=== PATIENT | female | born 1960 | race Caucasian/White ===

== ENCOUNTER → 2017-12-14 15:17 | Outpatient (CLI) | payer OTHER, SELFPAY ==
[2017-12-14 18:18] LABS: ALB/GLOB Ratio 1.1 RATIO (0.9-2.4); AST(SGOT) 18 U/L (15-37); Alanine Aminotransfer ALT/SGPT 34 U/L (13-56); Alkaline Phosphatase 53 U/L (45-117); Anion Gap 10 (5-15); BUN 12 mg/dL (7-18); BUN/Creat Ratio 13.6 RATIO (10-20); Calcium,Total 9.4 mg/dL (8.5-10.1); Chloride 103 mmol/L (98-107); Creatinine, Serum 0.88 mg/dL (0.55-1.02); EST Glomerular Filtration Rate 69 mL/min (>60); Est Glom Filt Rate - Afr Amer 84 mL/min (>60); Globulin 3.6 g/dL (2.2-4.2); Glucose 86 mg/dL (74-106); Potassium 3.8 mmol/L (3.5-5.1); Protein, Total 7.6 g/dL (6.4-8.2); Sodium Level 139 mmol/L (136-145); T4 Free Direct 1.56 ng/dL (0.76-1.46); Thyroid Stim Hormone (TSH) 0.41 uIU/mL (0.358-3.74)
== END ==
PROVIDERS: Family Provider Family Medicine; PCP Family Medicine; Visit Provider Family Medicine
DX: E03.8 Other specified hypothyroidism (principal); I10 Essential (primary) hypertension
CPT/HCPCS: 36415; 80053; 84439; 84443

== ENCOUNTER → 2018-04-28 08:21 | Outpatient (CLI) | payer OTHER, SELFPAY ==
--- NOTE | 2018-04-28 08:27 | BD_ITS ---
STUDY: DUAL ENERGY X-RAY ABSORPTIOMETRY / DXA REASON FOR EXAM: Female, 57 years old. The patient is postmenopausal. Loss of height. TECHNIQUE: Bone Mineral Density (BMD) measurements of lumbar spine and bilateral hips were obtained. COMPARISON: Comparison is made with prior study dated July 25, 2015. FINDINGS: Lumbar Spine (L1-L4): g/cm2 (0.854) / T-score (-2.7) / Z-score (-1.5) Findings are suggestive of osteoporosis with a high fracture risk. Left Femur Total: g/cm2 (0.845) / T-score (-1.3) / Z-score (-0.4) Left Femoral Neck: g/cm2 (0.762) / T-score (-2.0) / Z-score (-0.8) Right Femur Total: g/cm2 (0.845) / T-score (-1.3) / Z-score (-0.4) Right Femoral Neck: g/cm2 (0.724) / T-score (-2.3) / Z-score (-1.0) The T-Scores on the most recent prior examination were: Left Femur Total: which represents a worsening of 2.4%. Right Femur Total: which represents an improvement of 1.4%. BD/Dexa Bone Density Study IMPRESSION: The patient is considered osteoporotic as outlined below according to World Taran Organization (WHO) criteria with a high fracture risk. There has been improvement of bone density since the previous examination. Reference Information: The T-score is the number of standard deviations above or below the standard which is normal for young adults at their peak bone mineral density. The World Health Organization (WHO) interprets the T-scores as follows: Above -1 Normal bone density Between -1 and -2.5 Osteopenia Equal to / or below -2.5 Osteoporosis As a practical clinical guideline, osteopenia may be graded as follows: Mild -1 through -1.5 Moderate -1.6 through -2.0 Severe -2.1 through -2.4 The Z-score is the number of standard deviations above or below age-matched controls. A Z-score of less than -1.5 would be considered abnormal. References: 1. NIH Osteoporosis and Related Bone Diseases http://www.osteo.org 2. International Society for Clinical Densitometry http://www.iscd.org 3. National Osteoporosis Foundation http://www.nof.org Electronically Signed: Janusz Lennon MD at 15:16 EDT Tel [phone], Service support ,
== END ==
PROVIDERS: Family Provider Family Medicine; PCP Family Medicine; Visit Provider Family Medicine
DX: Z00.00 Encounter for general adult medical examination without abnormal findings (principal)
CPT/HCPCS: 77080

== ENCOUNTER → 2018-06-16 08:23 | Outpatient (CLI) | payer OTHER, SELFPAY ==
[2018-06-16 10:49] LABS: Vitamin D,25 Hydroxy 45.3 ng/mL (29.95-100.01)
[2018-06-16 10:55] LABS: AST(SGOT) 15 U/L (15-37); Alanine Aminotransfer ALT/SGPT 24 U/L (13-56); Albumin, Serum 3.6 g/dL (3.2-5.0); Alkaline Phosphatase 55 U/L (45-117); Anion Gap 10 (5-15); BUN 18 mg/dL (7-18); BUN/Creat Ratio 19.3 RATIO (10-20); Calcium,Total 8.8 mg/dL (8.5-10.1); Chloride 105 mmol/L (98-107); Cholesterol 261 mg/dL (200); Creatinine, Serum 0.93 mg/dL (0.55-1.02); EST Glomerular Filtration Rate 65 mL/min (>60); Est Glom Filt Rate - Afr Amer 79 mL/min (>60); Globulin 3.6 g/dL (2.2-4.2); Glucose 101 mg/dL (74-106); High Density Lipoprotein 49 mg/dL; Phosphorus 3.3 mg/dL (2.5-4.9); Potassium 3.8 mmol/L (3.5-5.1); Protein, Total 7.2 g/dL (6.4-8.2); Sodium Level 139 mmol/L (136-145); T4 Free Direct 1.43 ng/dL (0.76-1.46); Thyroid Stim Hormone (TSH) 0.53 uIU/mL (0.358-3.74); Triglycerides 85 mg/dL; Very Low Density Lipoprotein 17 mg/dL (5-40)
[2018-06-16 10:57] LABS: PTHIN 48.9 pg/mL (18.4-80.1)
--- OUTSIDE RECORDS SUMMARY | 2018-08-02 01:23 | XMS RPT_ITS ---
:1960 Author Organization OHIP Care Team Providers Name Role Phone RAMO VILLA Referring Unavailable Nehemias Mosher Attending Unavailable Nehemias Mosher Primary Care Unavailable Nehemias Mosher Attending Unavailable Nehemias Mosher Primary Care Unavailable Nehemias Mosher Attending Unavailable Nehemias Mosher Primary Care Unavailable PROBLEMS PROBLEMS DATE TYPE CONDITION / CODE ATTENDING STATUS SOURCE Unknown 272.0 - Pure Ransanam, Active [place] 8 hypercholesterolemia / [facility] 272.0(ICD-9) Hospital Repository Unknown E78.00 - Pure Ranney, Active [place] 8 hypercholesterolemia, [facility] unspecified / Hospital E78.00(ICD-10) Repository Unknown 244.8 - Other specified Ranney, Active [place] 8 acquired hypothyroidism / [facility] 244.8(ICD-9) Hospital Repository Unknown E03.8 - Other specified Ranney, Active [place] 8 hypothyroidism / [facility] E03.8(ICD-10) Hospital Repository Unknown 268.9 - Unspecified Ranney, Active [place] 8 vitamin D deficiency / [facility] 268.9(ICD-9) Hospital Repository Unknown E55.9 - Vitamin D Ranney, Active [place] 8 deficiency, unspecified / [facility] E55.9(ICD-10) Hospital Repository Unknown 733.01 - Senile Ranney, Active [place] 8 osteoporosis / [facility] 733.01(ICD-9) Hospital Repository Unknown M81.0 - Age-related Ranney, Active [place] 8 osteoporosis without [facility] current pathological Hospital fracture / M81.0(ICD-10) Repository Active Encounter for screening NA Active [place] 8 mammogram for malignant Clinic Main neoplasm of breast / [place] Z12.31(ICD-10) Repository PROCEDURES PROCEDURES No Procedure Records FoundRESULTS RESULTS VITAMIN D,25 HYDROXY Collected: 06/16/2018 Status: F Source: [place] 8:24 AM [facility] REPOSITORY TYPE CODE TESTS RESULT OUT OF RANGE REFERENCE UNITS LAB L506.1000 29.95-100.01 ng/mL Normal Vitamin D 45.3 25-OH Result Comment: Vitamin D 25(OH) Status Range Deficiency <20 ng/mL (50nmol/L) Insuffciency 20 - 30 ng/mL (50 - 75 nmol/L) Sufficiency 30 - 100 ng/mL (75 - 250 nmol/L) Toxicity >100 ng/mL (>250 nmol/L) Performed By: #### L506.1000, L500.4050, L500.4100, L501.9520, L506.0400 #### [facility] [address] [place], [address] COMPREHENSIVE METABOLIC Collected: 06/16/2018 Status: F Source: [facility] 8:24 AM [facility] REPOSITORY TYPE CODE TESTS RESULT OUT OF RANGE REFERENCE UNITS LAB L501.0100 74-106 mg/dL Normal GLU 101 Result Comment: Fasting Glucose result from 100 to 125 mg/dL suggests IMPAIRED HOMEOSTASIS per A.D.A. criteria. Please note revised GLUCOSE reference range effective 2017. LAB L501.1000 7-18 mg/dL Normal BUN 18 LAB L501.1100 0.55-1.02 mg/dL Normal CREAT,SERUM 0.93 Result Comment: The validity of the calculated GFR AND GFRAA in patients over 70 years has not been determined. Clinical correlation is essential. LAB L501.1110 >60 mL/min Normal EST GFR 65 Result Comment: Non- GFR Calc LAB L501.1115 >60 mL/min Normal EST GFR - AA 79 Result Comment: GFR Calc LAB L501.1300 10-20 RATIO Normal BUN/CRE 19.3 LAB L501.1500 6.4-8.2 g/dL T Normal PROT 7.2 LAB L501.1800 3.2-5.0 g/dL Normal ALB 3.6 LAB L501.1950 2.2-4.2 g/dL Normal GLOB 3.6 LAB L501.2000 0.9-2.4 RATIO Normal A/G 1.0 LAB L501.2200 8.5-10.1 mg/dL CA Normal 8.8 LAB L501.4100 15-37 U/L Normal AST 15 LAB L501.4305 45-117 U/L Normal ALK P 55 LAB L501.4405 13-56 U/L Normal ALT 24 LAB L501.4600 0.20-1.00 mg/dL T Normal [place] 0.60 LAB L501.5300 136-145 mmol/L NA Normal 139 LAB L501.5600 3.5-5.1 mmol/L K Normal 3.8 LAB L501.5900 98-107 mmol/L CL Normal 105 LAB L501.6100 21.0-32.0 mmol/L Normal CO2 24.0 LAB L501.6200 5-15 Normal GAP 10 Performed By: #### L506.1000, L500.4050, L500.4100, L501.9520, L506.0400 #### [facility] [address] [place], [place], [address] LIPID PROFILE Collected: 06/16/2018 Status: F Source: [place] 8:24 AM [facility] REPOSITORY TYPE CODE TESTS RESULT OUT OF RANGE REFERENCE UNITS LAB L501.4900 200 mg/dL High CHOL 261 Result Comment: <200 mg/dL Desirable 200-240 mg/dL Borderline >240 mg/dL High Risk LAB L501.5000 mg/dL Normal TRIG 85 Result Comment: The drugs N-Acetylcysteine and Metamizole may falsely depress this assay. Serum Triglycerides Reference Interval Normal <150 mg/dL Borderline high 150 - 199 mg/dL High 200 - 499 mg/dL Very High > or = 500 mg/dL LAB L501.6400 mg/dL Normal HDL 49 Result Comment: The drugs N-Acetylcysteine and Metamizole may falsely depress this assay. Reference Range HDL <40 mg/dL Low HDL Cholesterol HDL >or= 60 mg/dL High HDL Cholesterol LAB L501.6500 0-130 mg/dL High LDL 195 LAB L501.6600 5-40 mg/dL Normal VLDL 17 Performed By: #### L506.1000, L500.4050, L500.4100, L501.9520, L506.0400 #### [facility] [address] [place], [place], [address] THYROID STIM HORMONE Collected: 06/16/2018 Status: F Source: [place] (TSH) 8:24 AM [facility] REPOSITORY TYPE CODE TESTS RESULT OUT OF RANGE REFERENCE UNITS LAB L501.9520 0.358-3.74 uIU/mL Normal TSH 0.53 Performed By: #### L506.1000, L500.4050, L500.4100, L501.9520, L506.0400 #### [facility] [address] [place], [place], [address] T4 FREE DIRECT Collected: 06/16/2018 Status: F Source: [place] 8:24 AM [facility] REPOSITORY TYPE CODE TESTS RESULT OUT OF RANGE REFERENCE UNITS LAB L506.0400 0.76-1.46 ng/dL Normal T4 FREE 1.43 DIRECT Performed By: #### L506.1000, L500.4050, L500.4100, L501.9520, L506.0400 #### [facility] [address] [place], [address] PHOSPHORUS Collected: 06/16/2018 Status: F Source: [place] 8:24 AM [facility] REPOSITORY TYPE CODE TESTS RESULT OUT OF RANGE REFERENCE UNITS LAB L501.2300 2.5-4.9 mg/dL Normal PHOS 3.3 Performed By: #### L501.2300, L509.1000 #### [facility] [address] [place], [address] PTHIN Collected: 06/16/2018 Status: F Source: [place] 8:24 AM [facility] REPOSITORY TYPE CODE TESTS RESULT OUT OF RANGE REFERENCE UNITS LAB L509.1000 18.4-80.1 pg/mL Normal PTHIN 48.9 Performed By: #### L501.2300, L509.1000 #### [facility] [address] [place], [address] CALCIUM IONIZED Collected: 06/16/2018 Status: F Source: [place] 8:24 AM [facility] REPOSITORY TYPE CODE TESTS RESULT OUT OF RANGE REFERENCE UNITS LAB L3100.9600 4.5-5.6 mg/dL Normal IONIZED CA 5.4 Result Comment: Performed at: - [facility] [id number] Floor Manager: Collin Gann PhD, Phone: [phone] Performed By: #### L3100.9600 #### [facility] (refer to report for specific site) refer to report for address and phone number DEXA BONE DENSITY Observed: 04/28/2018 Status: F Source: [place] STUDY 8:28 AM [facility] REPOSITORY [facility] Imaging Services [address] [place] [address] Dexa Bone Density Study MR#: [id number] Acct: [id number] Name: ANGELA PRATHER Angela Rep #: [id number] : 1960 F 57 From: Janusz Lennon MD PCP: Nehemias Mosher MD Status: REG CLI Study: Dexa Bone Density Study Date of Exam: 04/28/18 Exam# [id number] Ordering Dr: Ranney,Seymour MD STUDY: DUAL ENERGY X-RAY ABSORPTIOMETRY / DXA REASON FOR EXAM: Female, 57 years old. The patient is postmenopausal. Loss of height. TECHNIQUE: Bone Mineral Density (BMD) measurements of lumbar spine and bilateral hips were obtained. COMPARISON: Comparison is made with prior study dated July 25, 2015. FINDINGS: Lumbar Spine (L1-L4): g/cm2 (0.854) / T-score (-2.7) / Z-score (-1.5) Findings are suggestive of osteoporosis with a high fracture risk. Left Femur Total: g/cm2 (0.845) / T-score (-1.3) / Z- score (-0.4) Left Femoral Neck: g/cm2 (0.762) / T-score (-2.0) / Z- score (-0.8) Right Femur Total: g/cm2 (0.845) / T-score (-1.3) / Z- score (-0.4) Right Femoral Neck: g/cm2 (0.724) / T-score (-2.3) / Z-score (-1.0) The T-Scores on the most recent prior examination were: Left Femur Total: which represents a worsening of 2.4%. Right Femur Total: which represents an improvement of 1.4%. BD/Dexa Bone Density Study IMPRESSION: The patient is considered osteoporotic as outlined below according to World Taran Organization (WHO) criteria with a high fracture risk. There has been improvement of bone density since the previous examination. Reference Information: The T-score is the number of standard deviations above or below the standard which is normal for young adults at their peak bone mineral density. The World Health Organization (WHO) interprets the T-scores as follows: Above -1 Normal bone density Between -1 and -2.5 Osteopenia Equal to / or below -2.5 Osteoporosis As a practical clinical guideline, osteopenia may be graded as follows: Mild -1 through -1.5 Moderate -1.6 through -2.0 Severe -2.1 through -2.4 The Z-score is the number of standard deviations above or below age-matched controls. A Z-score of less than -1.5 would be considered abnormal. References: 1. NIH Osteoporosis and Related Bone Diseases http://www.osteo.org 2. International Society for Clinical Densitometry http://www.iscd.org 3. National Osteoporosis Foundation http://www.nof.org Electronically Signed: Janusz Lennon MD at 15:16 EDT Tel [phone], Service support , CC: Nehemias Mosher MD Supervisor Mechanic Boilermaking: Signed CNCO Observed: 04/21/2018 Status: COMPLETED Source: [place] 9:30 AM [facility] REPOSITORY HNO ID: [id number] Author: Mammography Coordinator Service: (none) Author Type: Physician Type: Letter Filed: 04/25/2018 11:31 PM Note Text: April 21, 2018 PID: [id number] Angela Prather [address] [place] [address] Dear Ms. Prather, We are pleased to inform you that the results of your recent breast imaging exam on 04/21/2018 are normal. Your mammogram demonstrates that you have dense breast tissue, which could hide abnormalities. Dense breast tissue, in and of itself, is a relatively common condition. Therefore, this information is not provided to cause undue concern; rather, it is to raise your awareness and promote discussion with your health care provider regarding the presence of dense breast tissue in addition to other risk factors. Early detection of cancer is very important. We also understand recommendations regarding breast cancer screening are controversial. Please discuss with your primary care provider which strategy is best for you and whether a mammogram is right for you. Your imaging studies and report will be kept on file at [facility] as part of your permanent medical record and are available for your continuing care. Thank you for allowing us to help in meeting your health care needs. Sincerely, Dr. Owusu Interpreting Radiologist [facility] (Normal over 40) ZO SCREENING W CLARA Observed: 04/21/2018 Status: F Source: [place] 9:00 AM [facility] REPOSITORY * * *Final Report* * * DATE OF EXAM: Apr 21 2018 9:00AM [facility] [id number] - ZO SCREENING W CLARA / PROCEDURE REASON: Encounter for screening mammogram for malignant neoplasm of breast * * * * Physician Interpretation * * * * RESULT: #[id number] - ZO SCREENING W CLARA BILATERAL DIGITAL SCREENING MAMMOGRAM TOMOSYNTHESIS WITH CAD: 04/21/2018 HISTORY: Encounter For Screening Mammogram For Malignant Neoplasm Of Breast /patient reports NO breast symptoms /priors available for comparison. RESULT: TECHNIQUE: The study was acquired using full field digital technology and interpreted from soft copy. Digital Breast Tomosynthesis (DBT) images were obtained and used to assist in the interpretation of this examination. Current study was also evaluated with a Computer Aided Detection (CAD). Comparison is made to exams dated: 02/02/2017 mammogram and 10/08/2015 mammogram - [facility]. The tissue of both breasts is heterogeneously dense. This may lower the sensitivity of mammography. No significant masses, calcifications, or other findings are seen in either breast. There has been no significant interval change. IMPRESSION: NEGATIVE There is no mammographic evidence of malignancy.A 1 year screening mammogram is recommended. The exam was reviewed by a staff physician. Jarod Lackey M.D. ws,ssd/penrad:04/21/2018 09:30:48 Android Framework Developer: Kimebrly LOZANO(Rachael)(Andres), [facility] letter sent: Normal over 40 Mammogram BI-RADS: 1 Negative Multiple national specialty organizations have released breast cancer screening guidelines for women at average risk for developing breast cancer - guidelines that are based on both evidence and opinion, yet differ on when to start and how often to screen for breast cancer. With representation from Breast Imaging, Internal Medicine, Women's Health, Family Medicine, and Medical/Surgical Oncology, the [facility] has carefully reviewed the data and reached the following consensus: 1) All women should engage in shared decision-making with their providers to decide when to start and how often to screen; 2) All women should have the opportunity to start screening mammography at age 40; 3) For women ages 45-55, we recommend annual screening mammograms; 4) For women ages 55 and over, we support both the transition from an annual to a biennial interval if this aligns more with patient's values and preferences, or continuation with annual screening; 5) All women should discuss with their providers when to stop screening mammograms. Supervisor Mechanic Boilermaking: Michael Transcribe Date/Time: Apr 21 2018 8:38A Dictated by: JENNI LACKEY MD This examination was interpreted and the report reviewed and electronically signed by: JAROD OWUSU MD on Apr 21 2018 9:30AM EST [id number] Observed: 04/21/2018 Status: COMPLETED Source: [place] 8:38 AM [facility] REPOSITORY HNO ID: [id number] Author: Shayy Lozano Service: (none) Author Type: (none) Type: Progress Notes Filed: 04/21/2018 9:04 AM Note Text: Radiology Service Progress Note PATIENT NAME: Angela Prather DATE OF SERVICE: April 21, 2018 TIME: 8:38 AM PATIENT IDENTITY VERIFICATION COMPLETED USING TWO (2) METHODS: Patient confirmed name verbally and Date of . PATIENT GENDER DATA: Female. status: : No status: NO. PATIENT RELEVANT IMPLANT DATA REVIEWED: Not Applicable RADIOLOGY DEPARTMENT: [facility]ouard scr mammogram PERIPHERAL IV DATA: Not applicable SIGNED BY: Shayy Lozano April 21, 2018 8:38 AM [facility] Observed: 04/13/2018 Status: COMPLETED Source: [place] 12:00 AM [facility] REPOSITORY Telephone (WOOB) ANGELA PRATHER ([id number]) 1960 F Date Time Provider Department 04/13/18 RAMO VILLA WOOB During your visit today, we recorded the following information about you: Gretta Jones LPN 04/13/2018 12:59 PM Signed Patient called requesting an order for a 3D screening mammogram. Please approve order and patient would like a call to schedule. Ramo Villa MD 04/13/2018 3:02 PM Signed done. MD Chapis James RN 04/13/2018 3:13 PM Signed Patient notified and transferred to PSR to schedule. Chapis Bullard RN Allergies As of Date: 04/13/2018 Noted Allergy Reaction ERYTHROMYCIN 06/12/2005 8 - GI Upset LATEX 04/06/2008 Comments: sensitivity Seasonal [Other] 06/16/2005 Date Reviewed: 11/23/2016 Reviewed by: Michael Rivera Experimental Welder - Fully Assessed Reason for Visit: 3D mammogram order [Other] Primary Visit Diagnosis:Encounter for screening mammogram for malignant neoplasm of breast [Z12.31] Order(s):[facility] SCREENING W CLARA [[id number]] Order #: [id number] FUTURE Prescriptions as of 04/13/2018 Sig: IBANDRONATE 150 MG TABLET Take 150 mg by mouth once fabiola* * LEVOTHYROXINE 100 MCG TABLET Take 100 mcg by mouth daily b* * MEDICATION, NON-DATABASE vitamin d 3 daily * ASPIRIN 81 MG TABLET she takes occasionally * JESSE 180 MG TABLET as necessary * MULTIVITAMIN TABLET Take one(1) tablet daily. Problem List As Of Date 04/13/2018 Noted Resolved EXCESSIVE MENSTRUATION [N92.0] INVALID FOR*11/14/2008 IRREGULAR MENSTRUATION [N92.6] INVALID FOR*11/14/2008 UTERINE LEIOMYOMA NOS [D25.9] INVALID FOR*11/14/2008 OVARIAN CYST NEC/NOS [N83.209] INVALID FOR*11/14/2008 DYSMENORRHEA [N94.6] INVALID FOR*11/14/2008 URINARY INCONTINENCE, UNSPECIFIED [R32] INVALID FOR* Unspecified Chest Pain [R07.9] Allergic Rhinitis, Cause Unspecified [J30.9] Leiomyoma of Uterus, Unspecified [D25.9] Dysmenorrhea [N94.6] Internal hemorrhoids without mention of complic*INVALID FOR* Diarrhea [R19.7] INVALID FOR* Encounter Status:Closed by RAMO VILLA MD on 04/13/18 COMPREHENSIVE METABOLIC Collected: 12/14/2017 Status: F Source: [place] [facility] TYPE CODE TESTS RESULT OUT OF RANGE REFERENCE UNITS LAB L501.0100 74-106 mg/dL Normal GLU 86 Result Comment: Please note revised GLUCOSE reference range effective 2017. LAB L501.1000 7-18 mg/dL Normal BUN 12 LAB L501.1100 0.55-1.02 mg/dL Normal CREAT,SERUM 0.88 Result Comment: The validity of the calculated GFR AND GFRAA in patients over 70 years has not been determined. Clinical correlation is essential. LAB L501.1110 >60 mL/min Normal EST GFR 69 Result Comment: Non- GFR Calc LAB L501.1115 >60 mL/min Normal EST GFR - AA 84 Result Comment: GFR Calc LAB L501.1300 10-20 RATIO Normal BUN/CRE 13.6 LAB L501.1500 6.4-8.2 g/dL T Normal PROT 7.6 LAB L501.1800 3.2-5.0 g/dL Normal ALB 4.0 LAB L501.1950 2.2-4.2 g/dL Normal GLOB 3.6 LAB L501.2000 0.9-2.4 RATIO Normal A/G 1.1 LAB L501.2200 8.5-10.1 mg/dL CA Normal 9.4 LAB L501.4100 15-37 U/L Normal AST 18 LAB L501.4305 45-117 U/L Normal ALK P 53 LAB L501.4405 13-56 U/L Normal ALT 34 LAB L501.4600 0.20-1.00 mg/dL T Normal BILI 0.60 LAB L501.5300 136-145 mmol/L NA Normal 139 LAB L501.5600 3.5-5.1 mmol/L K Normal 3.8 LAB L501.5900 98-107 mmol/L CL Normal 103 LAB L501.6100 21.0-32.0 mmol/L Normal CO2 26.0 LAB L501.6200 5-15 Normal GAP 10 Performed By: #### L500.4050, L501.9520, L506.0400 #### [facility] [address] [place], [place], [address] THYROID STIM HORMONE Collected: 12/14/2017 Status: F Source: [place] (TSH) 3:21 PM [facility] REPOSITORY TYPE CODE TESTS RESULT OUT OF RANGE REFERENCE UNITS LAB L501.9520 0.358-3.74 uIU/mL Normal TSH 0.41 Performed By: #### L500.4050, L501.9520, L506.0400 #### [facility] [address] [place], [address] T4 FREE DIRECT Collected: 12/14/2017 Status: F Source: [place] 3:21 PM [facility] REPOSITORY TYPE CODE TESTS RESULT OUT OF REFERENCE UNITS RANGE LAB L506.0400 0.76-1.46 ng/dL High T4 FREE 1.56 DIRECT Performed By: #### L500.4050, L501.9520, L506.0400 #### [facility] [address] [place], [address] ALLERGIES ALLERGIES DATE TYPE / CODE NAME / CODE REACTION SEVERITY SOURCE DRUG LATEX [place] 8 INGREDI/[id number]( [facility] Main SNOMED CT) [place] Repository Miscellaneous OTHER [place] 5 Allergy/[id number]( [facility] SNOMED CT) [place] Repository DRUG/[id number](SNO ERYTHROMYCIN GI UPSET [place] [address]) [facility] Repository ENCOUNTERS ENCOUNTERS ADMIT/DISCHARGE ACCOUNT ADMITTING ENCOUNTER LOCATION SOURCE NUMBER CLASS 06/16/2018 [id number] [facility] ing:MFPLAB Repository 04/28/2018 [id number] [facility] ing:OPBD Repository 04/21/2018/04/25/20 [id number] Ambulatory [address] Repository 12/14/2017 [id number] [facility] ing:MFPLAB Repository PAYERS PAYERS ENCOUNTER GUARANTOR PAYER SUBSCRIBER SOURCE 06/16/2018 NEHEMIAS Joseph Primary NEHEMIAS Joseph [place] [id number] Insurance:[facility] STARRDOB: [facility] [address]Igklsg [id number]: Repository [address]Qeq: [phone]) [id number] [phone] () Date:[id number], [place] [address]KU: 06/16/2018 Secondary NOT GIVENUNK [place] Insurance:SELF PAY [facility] Number: Effective Repository Date:2018-06-16 04/28/2018 Diaer Jake Primary Insurance:[facility] [address] [place] [id number] [facility] StarrDOB: [place] Number: [id number] [id number] Repository [address]Yth: (330) Date:5306-08-23BV [phone] () [id number], [place] [address]ZX: 04/28/2018 Secondary NOT GIVENUNK [place] Insurance:SELF PAY [facility] Number: Effective Repository Date:2017-12-17 12/14/2017 Diaer Jake Primary Insurance:[facility] [address] [place] [id number] *DO NOT USE*Policy StarrDOB: [place] Number: [id number], [place] [id number] Repository [address]Nfe: (330) Date:9781-01-39RE [phone] () [address], [place] [address]OL: 12/14/2017 Secondary NOT GIVENUNK [place] Insurance:SELF PAY [facility] Number: Effective Repository Date:2017-12-14
== END ==
PROVIDERS: Family Provider Family Medicine; PCP Family Medicine; Visit Provider Family Medicine
DX: E78.00 Pure hypercholesterolemia, unspecified (principal); M81.0 Age-related osteoporosis without current pathological fracture; E03.8 Other specified hypothyroidism; E55.9 Vitamin D deficiency, unspecified
CPT/HCPCS: 80053; 80061; 82306; 82330; 83970; 84100; 84439; 84443

== ENCOUNTER 2018-12-07 08:26 | Day surgery (SDC) | payer OTHER, SELFPAY ==
[2018-11-30 08:27] VITALS: BMI 37.5
--- NOTE | 2018-11-30 08:27 | HP_ITS ---
Intake Intake Visit Reasons: Diarrhea/Loose Stools Medications levothyroxine 100 mcg capsule 100 mcg PO QDAY #90 cap 09/13/17 [Rx] PFSH Medical History Abdominal pain (Acute) Arthritis (Acute) Diarrhea (Acute) Thyroid disease (Acute) Hypertension (Chronic) Surgical History History of hysterectomy (Acute) History of parathyroid surgery (Acute) History of tonsillectomy (Acute) Family History Mother Arthritis Hypertension High blood cholesterol Osteoporosis CVA (cerebral vascular accident) Son Arthritis Grandmother Breast cancer Heart disease Grandfather Colon cancer Heart disease Brother High blood cholesterol Hypertension Social History Smoking Status: Never smoker alcohol intake: current alcohol intake frequency: a few times a month substance use type: does not use HPI HPI HPI: NATALIA JONES, is a 58 F who presents to the office today for HPI HPI Surgical H&P: Yes HPI: NATALIA JONES, is a 58 F who presents to the office today for evaluation of diarrhea. Since September of this past year she has had very loose stools sometimes are minimally formed other times a viktor diarrhea. She has not noticed any blood in her stools her last colonoscopy was in 2008 which was essentially negative at that time. And she is actually due for routine colonoscopy in June but she is more concerned because of the changes she is noticed over the last several months. She has had a grandfather who has had colon cancer in her mom and brothers who have had polyps in the past. She is not complaining of any abdominal pain her weight is been stable she is not having any nausea or vomiting. ROS General General: Yes weight change and fatigue; no appetite, colon cancer, breast cancer or weakness HEENT HEENT: Yes eye surgery; no difficulty swallowing, eye injury, swollen glands or hoarseness Endo Endocrine: Yes thyroid disease; no diabetes mellitus, thyroid cancer, Hair loss, heat intolerance or cold intolerance Skin Skin: No rash or changing moles Breast Breast: No left breast lump, right breast lump, nipple discharge, breast pain, abnormal mammogram, abnormal US or breast enlargement Musc Musculoskeletal: Yes arthritis; no back problems, rheumatoid arthritis, gout or joint pain Cardio Cardiovascular: Yes high blood pressure; no murmur, pacemaker, heart disease, atrial fibrillation, heart attack, heart stent, palpitations, shortness of breat with exertion or chest pain Psych Psychiatric: No depression, anxiety or hearing voices Resp Respiratory: No shortness of breath, No sleep apnea, No cough, No COPD, No asthma, No emphysema, No wheezing Gastro Gastrointestinal: Yes abdominal pain, No nausea or vomiting, Yes diarrhea, No constipation, No blood in stool, No acid reflux, No hemorrhoids, No ulcers, No gallbladder problem, No black,tarry stools Placido Hematologic: No blood thinners, No blood disorders, No bleeding, No anemia, No blood clots Neuro Neurologic: No system reviewed and no additional complaints, except as docu, No as per HPI, No abnormal walking, No abnormal hearing, No abnormal movements, No abnormal speech, No behavioral changes, No burning sensations, No confusion, No seizure-like activity, No unsteadiness, No dizziness, No localized weakness, No frequent falls, No headache(s), No lack of coordination, No loss of vision, No memory loss, Yes numbness, No other visual disturbances, No radiating pain, No restless legs, No sensory deficit, No fainting, Yes tingling, No tremor(s), No weakness, No other Exam Const General: no acute distress, well developed, well hydrated Orientation: oriented to person, oriented to place, oriented to time [facility] Head: normocephalic, atraumatic Ears: external ears normal Mouth: moist mucous membranes Eyes Sclera: sclerae normal Pupils: normal by confrontation Neck Neck: no lymphadenopathy noted Neck mass: No Thyroid: thyroid normal, symmetrical Chest Chest palpation & inspection: normal inspection of the chest Breast Palpation: No nipple discharge Resp Effort & Inspection: normal respiratory effort Auscultation: clear to auscultation bilaterally Percussion: percussion normal Cardio Rate: regular rate Rhythm: regular rhythm Heart Sounds: no murmurs GI Inspection: obesity Palpation: soft, no hepatosplenomegaly, no masses, nontender Rectal Exam: other Other: Rectal exam deferred. Extrem General: normal to inspection, no clubbing, cyanosis or edema Assessment & Plan Problems 1. Diarrhea, unspecified type R19.7 Plan I have discussed the above with the patient. I have offered the patient colonoscopy for evaluation. I have explained the risks/benefits of the procedure and described the procedure. I have discussed the risks with the patient, including but not limited to: infection, bleeding, perforation of the GI tract requiring emergency surgery, inability to complete the procedure, injury to any internal organs, complications of anesthesia, etc. - the patient understands and agrees to proceed. I have answered all the patient's questions to the patient's satisfaction and the patient has no further questions. The patient has been given instructions for the colon cleansing preparation. We will be doing random colon biopsies. Coding Level of Care Code Off vis,new,level 3 Diagnoses Diarrhea, unspecified type R19.7 ??Diarrhea type: unspecified type 11/30/18 0828 <Electronically signed by Asim Mcclure MD> Date Asim Mcclure MD
[2018-12-07 08:44] VITALS: BP 129/84; PULSE 78; RESP 18; TEMP 36.6; O2SAT 97; BMI 37.2
--- NOTE | 2018-12-07 09:30 | COLBX_PTH ---
PATIENT: NATALIA JONES LOC: EN U#:[id number] AGE/SX: 58/F ROOM: RE12/07/[address]: Dr. Asim Mcclure MD : 1960 BED: DIS: 12/07/2018 SPEC #: [id number] RECD: 12/07/18 10:55 STATUS: ISMA LUKE #: [id number] GISELA: 12/07/18 09:[address]: Asim Mcclure DEPT: SURGICAL PATHOLOGY RECD BY: Ainsley Saldivar ENTERED: 12/07/18 11:50 SP TYPE: COLON BX OT DR: Dr. Juan José Mosher MD Tissues: COLON BIOPSY Procedures: Trichrome (control) Special Stain Group II Surgery Specimen Level IV HEADER OPERATION: Colonoscopy (MAC) PRE-OP DIAGNOSIS: Diarrhea TISSUE SUBMITTED: Random colon biopsies MICROSCOPIC DIAGNOSIS Random colon biopsy: Lymphocytic colitis. See comment. AM:dayron 6/6/19 COMMENT Trichrome stain with matched control does not reveal a thickened basal plate. MICROSCOPIC DESCRIPTION Slides are reviewed. GROSS DESCRIPTION Received in fixative is one container labeled with the patient's name and designated random colon biopsy. The specimen consists of multiple irregular fragments of light ponce soft tissue that in aggregate measure 2 x 1 x 0.2 cm. The specimen is totally submitted in one cassette. / SJ:dayron 12/07/18 TC:3 CPT: 23502, 86973
--- NOTE | 2018-12-07 09:49 | PCM.HP.BLA ---
History and Physical Date of Admission: 12/07/18 LIVE [facility] Office Visit Surgical Patient Name: NATALIA JONES Date of : 1960 Patient Status: Ambulatory Office Visit Attending Provider: Asim Mcclure Date: 11/30/18 08:14 Initialization Date: 11/30/18 08:14 Intake Intake Visit Reasons: Diarrhea/Loose Stools Medications levothyroxine 100 mcg capsule 100 mcg PO QDAY #90 cap 09/13/17 [Rx] PFSH Medical History Abdominal pain (Acute) Arthritis (Acute) Diarrhea (Acute) Thyroid disease (Acute) Hypertension (Chronic) Surgical History History of hysterectomy (Acute) History of parathyroid surgery (Acute) History of tonsillectomy (Acute) Family History Mother Arthritis Hypertension High blood cholesterol Osteoporosis CVA (cerebral vascular accident) Son Arthritis Grandmother Breast cancer Heart disease Grandfather Colon cancer Heart disease Brother High blood cholesterol Hypertension Social History Smoking Status: Never smoker alcohol intake: current alcohol intake frequency: a few times a month substance use type: does not use HPI HPI HPI: NATALIA JONES is a 58 F who presents to the office today for HPI HPI Surgical H&P: Yes HPI: NATALIA JONES, is a 58 F who presents to the office today for evaluation of diarrhea. Since September of this past year she has had very loose stools sometimes are minimally formed other times a viktor diarrhea. She has not noticed any blood in her stools her last colonoscopy was in 2008 which was essentially negative at that time. And she is actually due for routine colonoscopy in June but she is more concerned because of the changes she is noticed over the last several months. She has had a grandfather who has had colon cancer in her mom and brothers who have had polyps in the past. She is not complaining of any abdominal pain her weight is been stable she is not having any nausea or vomiting. ROS General General: Yes weight change and fatigue; no appetite, colon cancer, breast cancer or weakness HEENT HEENT: Yes eye surgery; no difficulty swallowing, eye injury, swollen glands or hoarseness Endo Endocrine: Yes thyroid disease; no diabetes mellitus, thyroid cancer, Hair loss, heat intolerance or cold intolerance Skin Skin: No rash or changing moles Breast Breast: No left breast lump, right breast lump, nipple discharge, breast pain, abnormal mammogram, abnormal US or breast enlargement Musc Musculoskeletal: Yes arthritis; no back problems, rheumatoid arthritis, gout or joint pain Cardio Cardiovascular: Yes high blood pressure; no murmur, pacemaker, heart disease, atrial fibrillation, heart attack, heart stent, palpitations, shortness of breat with exertion or chest pain Psych Psychiatric: No depression, anxiety or hearing voices Resp Respiratory: No shortness of breath, No sleep apnea, No cough, No COPD, No asthma, No emphysema, No wheezing Gastro Gastrointestinal: Yes abdominal pain, No nausea or vomiting, Yes diarrhea, No constipation, No blood in stool, No acid reflux, No hemorrhoids, No ulcers, No gallbladder problem, No black,tarry stools Placido Hematologic: No blood thinners, No blood disorders, No bleeding, No anemia, No blood clots Neuro Neurologic: No system reviewed and no additional complaints, except as docu, No as per HPI, No abnormal walking, No abnormal hearing, No abnormal movements, No abnormal speech, No behavioral changes, No burning sensations, No confusion, No seizure-like activity, No unsteadiness, No dizziness, No localized weakness, No frequent falls, No headache(s), No lack of coordination, No loss of vision, No memory loss, Yes numbness, No other visual disturbances, No radiating pain, No restless legs, No sensory deficit, No fainting, Yes tingling, No tremor(s), No weakness, No other Exam Const General: no acute distress, well developed, well hydrated Orientation: oriented to person, oriented to place, oriented to time [facility] Head: normocephalic, atraumatic Ears: external ears normal Mouth: moist mucous membranes Eyes Sclera: sclerae normal Pupils: normal by confrontation Neck Neck: no lymphadenopathy noted Neck mass: No Thyroid: thyroid normal, symmetrical Chest Chest palpation & inspection: normal inspection of the chest Breast Palpation: No nipple discharge Resp Effort & Inspection: normal respiratory effort Auscultation: clear to auscultation bilaterally Percussion: percussion normal Cardio Rate: regular rate Rhythm: regular rhythm Heart Sounds: no murmurs GI Inspection: obesity Palpation: soft, no hepatosplenomegaly, no masses, nontender Rectal Exam: other Other: Rectal exam deferred. Extrem General: normal to inspection, no clubbing, cyanosis or edema Assessment & Plan Problems 1. Diarrhea, unspecified type R19.7 Plan I have discussed the above with the patient. I have offered the patient colonoscopy for evaluation. I have explained the risks/benefits of the procedure and described the procedure. I have discussed the risks with the patient, including but not limited to: infection, bleeding, perforation of the GI tract requiring emergency surgery, inability to complete the procedure, injury to any internal organs, complications of anesthesia, etc. - the patient understands and agrees to proceed. I have answered all the patient's questions to the patient's satisfaction and the patient has no further questions. The patient has been given instructions for the colon cleansing preparation. We will be doing random colon biopsies. Coding Level of Care Code Off vis,new,level 3 Diagnoses Diarrhea, unspecified type R19.7 ??Diarrhea type: unspecified type I have re-examined the patient. There are no clinical changes since date of exam.
[2018-12-07 10:11] VITALS: BP 117/65; BP 124/84; PULSE 76; RESP 16; TEMP 36.8; O2SAT 93
--- NOTE | 2018-12-07 10:12 | OP.ENDO_ITS ---
12/07/2018 Seymour Mosher [address] [place] [address] Re : Colonoscopy procedure for Angela Prather Dear Dr. Mosher This procedure was performed on Friday, December 07, 2018. My impressions and recommendations are as follows: Impressions : - The entire examined colon is normal. Biopsied. - The examination was otherwise normal. Recommendations : - Discharge patient to home. - Resume previous diet. - Continue present medications. - Await pathology results. - Repeat colonoscopy in 10 years for screening purposes. - Return to my office in 1 week. My findings are described in the full procedure note, which is enclosed. If I can be of further assistance, please feel free to contact me at Doctor phone number(s): , Fax: [phone], Work: . Sincerely, MD Asim Frederick MD 12/07/2018 10:11:50 AM This report has been signed electronically.
[2018-12-07 10:16] VITALS: BP 117/62; BP 124/84; PULSE 77; RESP 16; O2SAT 94
[2018-12-07 10:21] VITALS: BP 122/58; BP 124/84; PULSE 70; RESP 16; O2SAT 92
[2018-12-07 10:26] VITALS: BP 106/65; BP 124/84; PULSE 61; RESP 16; TEMP 36.9; O2SAT 100
[2018-12-07 11:33] VITALS: BP 124/84
== END 2018-12-07 12:09 | disposition home or self-care (01) ==
LOC: EN 08:26 → AC 08:27
PROVIDERS: Family Provider Family Medicine; PCP Family Medicine; Referring Provider Surgery; Visit Provider Surgery
PROC: 0DJD8ZZ Inspection of Lower Intestinal Tract, Via Natural or Artificial Opening Endoscopic (ICD-10-PCS; CPT 45378; principal; 2018-12-07 09:25)
DX: K58.0 Irritable bowel syndrome with diarrhea (principal); M19.90 Unspecified osteoarthritis, unspecified site; I10 Essential (primary) hypertension; E78.00 Pure hypercholesterolemia, unspecified; E06.9 Thyroiditis, unspecified; Z80.0 Family history of malignant neoplasm of digestive organs; Z87.442 Personal history of urinary calculi; Z86.2 Personal history of diseases of the blood and blood-forming organs and certain disorders involving the immune mechanism; Z78.0 Asymptomatic menopausal state; Z79.899 Other long term (current) drug therapy
CPT/HCPCS: 45380; 88305; 88313; J7120; A4216

== ENCOUNTER → 2019-05-26 07:57 | Outpatient (CLI) | payer OTHER, SELFPAY ==
[2019-04-30 14:06] VITALS: BMI 37.2
--- NOTE | 2019-05-26 08:01 | BI_ITS ---
MAMMOGRAPHY - BILATERAL SCREENING REASON FOR EXAM: Female, 58 years old. Routine annual screening examination. PERTINENT HISTORY: Grandmother with breast cancer. TECHNIQUE: Digital bilateral breast clara (3D mammographic acquisition) in the CC and MLO projections. 2-D mediolateral oblique (MLO) and craniocaudad (CC) views of both breasts were obtained. CAD: Full Field Digital Mammography with Computer Added Detection was performed. COMPARISON: Comparison is made with prior outside examination in April 21, 2018. FINDINGS: Breast Composition: There are scattered areas of fibroglandular density. There are no dominant masses or suspicious calcifications. Stable small bilateral benign appearing axillary lymph nodes. Stable 6.3 mm nodule in the upper deep lateral aspect of the right breast. This most likely represents a small cyst or small lymph node. No other significant abnormalities are identified. There has been no significant change since the prior study. BI/SCREEN MAMM (CAD) W/CLARA BILAT IMPRESSION: Stable bilateral screening mammogram. Yearly follow-up mammogram recommended. (A) ASSESSMENT CATEGORY: BIRADS Category 2: Benign. A letter regarding these results will be sent to the patient by the facility within 30 days. Approximately 10% of breast cancers are not detected by mammography. A normal mammogram should not delay biopsy of a clinically suspicious abnormality. [id number] Electronically Signed: Janusz Lennon, at 10:36 EST , Service support ,
== END ==
PROVIDERS: Family Provider Family Medicine; PCP Family Medicine; Referring Provider Obstetrics & Gynecology; Visit Provider Obstetrics & Gynecology
DX: Z12.31 Encounter for screening mammogram for malignant neoplasm of breast (principal)
CPT/HCPCS: 77063; 77067

== ENCOUNTER → 2019-07-27 08:39 | Outpatient (CLI) | payer OTHER, SELFPAY ==
[2019-04-30 14:06] VITALS: BMI 37.2
[2019-07-27 10:35] LABS: Vitamin D,25 Hydroxy 44.8 ng/mL (29.95-100.01)
[2019-07-27 10:40] LABS: Anion Gap 6 (5-15); BUN 15 mg/dL (7-18); BUN/Creat Ratio 17.4 RATIO (10-20); Calcium,Total 9.6 mg/dL (8.5-10.1); Chloride 102 mmol/L (98-107); Creatinine, Serum 0.86 mg/dL (0.55-1.02); EST Glomerular Filtration Rate 71 mL/min (>60); Est Glom Filt Rate - Afr Amer 86 mL/min (>60); Glucose 104 mg/dL (74-106); Potassium 3.7 mmol/L (3.5-5.1); Sodium Level 135 mmol/L (136-145); T4 Free Direct 1.51 ng/dL (0.76-1.46); Thyroid Stim Hormone (TSH) 0.97 uIU/mL (0.358-3.74)
== END ==
PROVIDERS: PCP Family Medicine; Referring Provider Family Medicine; Visit Provider Family Medicine
DX: M81.0 Age-related osteoporosis without current pathological fracture (principal); E03.8 Other specified hypothyroidism
CPT/HCPCS: 36415; 80048; 82306; 84439; 84443

== ENCOUNTER → 2020-02-08 | Outpatient (CLI) | payer OTHER, SELFPAY ==
[2019-04-30 14:06] VITALS: BMI 37.2
== END | disposition home or self-care (01) ==
PROVIDERS: PCP Family Medicine; Referring Provider Family Medicine; Visit Provider Family Medicine
DX: Z71.89 Other specified counseling (principal)
CPT/HCPCS: 87635; U0003

== ENCOUNTER 2020-09-02 17:11 | Outpatient (RCR) | payer OTHER, SELFPAY ==
[2019-04-30 14:06] VITALS: BMI 37.2
== END 2020-09-02 23:59 ==
LOC: IMMUN 17:11
PROVIDERS: PCP Family Medicine; Visit Provider Family Medicine
DX: Z23 Encounter for immunization (principal)
CPT/HCPCS: 0011A; 0012A

== ENCOUNTER → 2020-09-18 09:44 | Outpatient (CLI) | payer OTHER, SELFPAY ==
[2019-04-30 14:06] VITALS: BMI 37.2
[2020-09-18 12:50] LABS: AST(SGOT) 23 U/L (15-37); Alanine Aminotransfer ALT/SGPT 32 U/L (13-56); Albumin, Serum 3.7 g/dL (3.2-5.0); Alkaline Phosphatase 58 U/L (45-117); Anion Gap 6 (5-15); BUN 16 mg/dL (7-18); BUN/Creat Ratio 16.3 RATIO (10-20); Calcium,Total 9.4 mg/dL (8.5-10.1); Chloride 104 mmol/L (98-107); Creatinine, Serum 0.98 mg/dL (0.55-1.02); EST Glomerular Filtration Rate 61 mL/min (>60); Est Glom Filt Rate - Afr Amer 74 mL/min (>60); Globulin 3.7 g/dL (2.2-4.2); Glucose 100 mg/dL (74-106); Potassium 4.4 mmol/L (3.5-5.1); Protein, Total 7.4 g/dL (6.4-8.2); Sodium Level 137 mmol/L (136-145); T4 Free Direct 1.16 ng/dL (0.76-1.46); Thyroid Stim Hormone (TSH) 1.24 uIU/mL (0.358-3.74)
[2020-09-18 13:21] LABS: PTHIN 56.8 pg/mL (18.4-80.1)
== END ==
PROVIDERS: PCP Family Medicine; Referring Provider Family Medicine; Visit Provider Family Medicine
DX: E78.00 Pure hypercholesterolemia, unspecified (principal); E04.1 Nontoxic single thyroid nodule; E21.3 Hyperparathyroidism, unspecified; M81.0 Age-related osteoporosis without current pathological fracture
CPT/HCPCS: 36415; 80053; 82306; 82330; 83970; 84100; 84439; 84443

== ENCOUNTER → 2020-09-19 14:24 | Outpatient (CLI) | payer OTHER, SELFPAY ==
[2019-04-30 14:06] VITALS: BMI 37.2
--- NOTE | 2020-09-19 14:28 | US_ITS ---
STUDY: THYROID ULTRASOUND REASON FOR EXAM: Female, 60 years old. NODULE TECHNIQUE: Ultrasound evaluation of the thyroid was performed with real-time and static turcios-scale imaging. COMPARISON: Comparison is made with prior examination dated 11/06/2016. FINDINGS: RIGHT LOBE: The right lobe of the thyroid gland measures 3.4 cm x 1.1 cm x 1.1 cm. There is a heterogeneous echotexture. Single hypoechoic solid nodule in the lower pole measuring 8 mm x 7 mm x 7 mm. This has increased minimally in size as compared to prior study. LEFT LOBE: The left lobe of the thyroid gland measures 3.3 cm x 1 cm x 1 cm. There is a heterogeneous echotexture. There are no demonstrated solid, cystic or complex lesions. ISTHMUS: The isthmus measures 2 mm. The regional lymph nodes are normal. US/Thyroid IMPRESSION: Minimally increase in size of the solitary hypoechoic solid nodule in the lower pole of the right lobe measuring 8 mm x 7 mm x 7 mm. Electronically Signed: Janusz Lennon MD at 13:03 EDT , Service support ,
== END ==
PROVIDERS: PCP Family Medicine; Visit Provider Family Medicine
DX: E04.1 Nontoxic single thyroid nodule (principal)
CPT/HCPCS: 76536

== ENCOUNTER → 2021-10-29 | Outpatient (CLI) | payer OTHER, SELFPAY ==
--- NOTE | 2021-10-29 10:14 | RAD_ITS ---
STUDY: X-RAY - LEFT SHOULDER REASON FOR EXAM: Female, 61 years old. Check of strain. Pain. TECHNIQUE: 4 view(s) of the shoulder. COMPARISON: None. FINDINGS: Osteopenia. Mild arthrosis of the glenohumeral joint. Mild arthrosis of the AC joint. Normal acromion. Normal humeral head and visualized proximal humerus. The soft tissue structures are unremarkable. Normal visualized pulmonary apex. RAD/Shoulder min 2 Views IMPRESSION: Osteopenia with mild arthrosis of the glenohumeral and acromioclavicular joints. No acute abnormality or erosive changes. Electronically Signed: Preston Palencia MD at 10:31 EDT ,
[2021-10-29 12:27] LABS: PTHIN 40.9 pg/mL (18.4-80.1)
[2021-10-29 12:32] LABS: Vitamin D,25 Hydroxy 49.2 ng/mL
[2021-10-29 12:40] LABS: Anion Gap 8 (5-15); BUN 13 mg/dL (7-18); BUN/Creat Ratio 14.3 RATIO (10-20); Calcium,Total 8.9 mg/dL (8.5-10.1); Chloride 103 mmol/L (98-107); Creatinine, Serum 0.91 mg/dL (0.55-1.02); EST Glomerular Filtration Rate 66 mL/min (>60); Est Glom Filt Rate - Afr Amer 80 mL/min (>60); Glucose 106 mg/dL (74-106); Magnesium 1.8 mg/dL (1.6-2.6); Potassium 3.8 mmol/L (3.5-5.1); Sodium Level 135 mmol/L (136-145); T4 Free Direct 1.21 ng/dL (0.76-1.46); Thyroid Stim Hormone (TSH) 1.02 uIU/mL (0.358-3.74)
== END | disposition home or self-care (01) ==
LOC: MTLAB 10:12
PROVIDERS: PCP Family Medicine; Referring Provider Family Medicine; Visit Provider Family Medicine
DX: S46.012A Strain of muscle(s) and tendon(s) of the rotator cuff of left shoulder, initial encounter (principal); M81.0 Age-related osteoporosis without current pathological fracture; E03.8 Other specified hypothyroidism
CPT/HCPCS: 36415; 73030; 80048; 82306; 83735; 83970; 84439; 84443

== ENCOUNTER → 2021-11-13 | Outpatient (CLI) | payer OTHER, SELFPAY ==
--- NOTE | 2021-11-13 10:03 | BI_ITS ---
MAMMOGRAPHY - BILATERAL SCREENING REASON FOR EXAM: Female, 61 years old. Routine annual screening examination. PERTINENT HISTORY: Grandmother with breast cancer. TECHNIQUE: Digital bilateral breast clara (3D mammographic acquisition) in the CC and MLO projections. 2-D mediolateral oblique (MLO) and craniocaudad (CC) views of both breasts were obtained. CAD: Full Field Digital Mammography with Computer Added Detection was performed. COMPARISON: Comparison is made with prior outside examination dated 08/09/2020 and 05/26/2019. FINDINGS: Breast Composition: There are scattered areas of fibroglandular density. There are no dominant masses or suspicious calcifications. Stable 6.3 mm nodule in the upper deep lateral aspect of the right breast. No other significant abnormalities are identified. There has been no significant change since the prior study. BI/SCRN MAMM (CAD)W/CLARA BILAT IMPRESSION: Stable bilateral screening mammogram. Yearly follow-up mammogram recommended. (A) ASSESSMENT CATEGORY: BIRADS Category 2: Benign. A letter regarding these results will be sent to the patient by the facility within 30 days. Approximately 10% of breast cancers are not detected by mammography. A normal mammogram should not delay biopsy of a clinically suspicious abnormality. [id number] Electronically Signed: Janusz Lennon MD at 11:54 EDT ,
--- NOTE | 2021-11-13 10:20 | BD_ITS ---
STUDY: DUAL ENERGY X-RAY ABSORPTIOMETRY / DXA REASON FOR EXAM: Female, 61 years old. Z780. Patient is postmenopausal. TECHNIQUE: Bone Mineral Density (BMD) measurements of lumbar spine and bilateral hips were obtained. COMPARISON: Comparison is made with prior studies 04/28/2018. FINDINGS: Lumbar Spine (L1-L4): g/cm2 (0.690) / T-score (-2.9) / Z-score (-1.3) Findings are suggestive of osteoporosis with a high fracture risk. Left Femur Total: g/cm2 (0.819) / T-score (-1.0) / Z-score (0.1) Left Femoral Neck: g/cm2 (0.641) / T-score (-1.9) / Z-score (-0.4) Right Femur Total: g/cm2 (0.791) / T-score (-1.2) / Z-score (-0.1) Right Femoral Neck: g/cm2 (0.567) / T-score (-2.5) / Z-score (-1.1) The T-Scores on the most recent prior examination were: Lumbar Spine (L1-L4): There has been worsening of bone density since the previous examination. Left Femur Total: which represents an improvement of 4.6%. Right Femur Total: which represents an improvement of 1%. BD/Dexa Bone Density Study IMPRESSION: The patient is considered osteoporotic as outlined below according to World Taran Organization (WHO) criteria with a high fracture risk. There has been improvement of bone density since the previous examination. Reference Information: The T-score is the number of standard deviations above or below the standard which is normal for young adults at their peak bone mineral density. The World Health Organization (WHO) interprets the T-scores as follows: Above -1 Normal bone density Between -1 and -2.5 Osteopenia Equal to / or below -2.5 Osteoporosis As a practical clinical guideline, osteopenia may be graded as follows: Mild -1 through -1.5 Moderate -1.6 through -2.0 Severe -2.1 through -2.4 The Z-score is the number of standard deviations above or below age-matched controls. A Z-score of less than -1.5 would be considered abnormal. References: 1. NIH Osteoporosis and Related Bone Diseases www osteo.org 2. International Society for Clinical Densitometry www iscd.org 3. National Osteoporosis Foundation www nof.org Electronically Signed: Janusz Lennon MD at 15:04 EDT ,
== END | disposition home or self-care (01) ==
LOC: OPBD 10:01
PROVIDERS: PCP Family Medicine; Referring Provider Family Medicine; Visit Provider Family Medicine
DX: Z12.31 Encounter for screening mammogram for malignant neoplasm of breast (principal); Z78.0 Asymptomatic menopausal state
CPT/HCPCS: 77063; 77067; 77080

== ENCOUNTER → 2022-12-17 | Outpatient (CLI) | payer OTHER, SELFPAY ==
--- NOTE | 2022-12-17 10:59 | BI_ITS ---
MAMMOGRAPHY - BILATERAL SCREENING REASON FOR EXAM: Female, 62 years old. Routine annual screening examination. PERTINENT HISTORY: Grandmother with breast cancer. TECHNIQUE: Digital bilateral breast clara (3D mammographic acquisition) in the CC and MLO projections. 2-D mediolateral oblique (MLO) and craniocaudad (CC) views of both breasts were obtained. CAD: Full Field Digital Mammography with Computer Added Detection was performed. COMPARISON: Comparison is made with prior study dated November 13, 2021 and May 26, 2019. FINDINGS: Breast Composition: There are scattered areas of fibroglandular density. There are no dominant masses or suspicious calcifications. Stable 6 mm well-defined nodule in the upper deep lateral aspect of the right breast. Stable small benign-appearing bilateral axillary lymph nodes. No other significant abnormalities are identified. There has been no significant change since the prior study. BI/SCRN MAMM (CAD)W/CLARA BILAT IMPRESSION: Stable bilateral screening mammogram. Yearly follow-up mammogram recommended. (A) ASSESSMENT CATEGORY: BIRADS Category 2: Benign. A letter regarding these results will be sent to the patient by the facility within 30 days. Approximately 10% of breast cancers are not detected by mammography. A normal mammogram should not delay biopsy of a clinically suspicious abnormality. [id number] Electronically Signed: Janusz Lennon MD at 11:52 EDT ,
== END | disposition home or self-care (01) ==
PROVIDERS: PCP Family Medicine; Referring Provider Family Medicine; Visit Provider Family Medicine
DX: Z12.31 Encounter for screening mammogram for malignant neoplasm of breast (principal); Z80.3 Family history of malignant neoplasm of breast
CPT/HCPCS: 77063; 77067

== ENCOUNTER → 2023-02-10 | Outpatient (CLI) | payer OTHER, SELFPAY ==
[2023-02-10 15:13] LABS: Mucous, Urine 0 SEEN /hpf (<or=2+); Red Blood Cells-Urine 0 SEEN /hpf (0-5)
[2023-02-10 15:34] LABS: Color, Urine Yellow (Yellow); Glucose, Dipstick Normal (Normal); Ketone-Dipstick Negative (Negative); Leukocyte Esterase-Dipstick 25 /ul (Negative); Nitrite-Dipstick Negative (Negative); Occult Blood-Urine 10 /ul (Negative); Protein-Dipstick 30 mg/dl (Negative); Urine Bilirubin Dipstick Negative (Negative); Urine Clarity Sl. Cloudy (Clear); Urine Urobilinogen Normal (Normal); Urine pH 6.5 (5.0 - 8.0)
[2023-02-10 16:11] LABS: Bacteria 1+ /hpf (None Seen); Hyaline Cast 0-5 SEEN /lpf (0-5); Squamous Epithelial Cells - UA 0-5 SEEN /hpf (5-10); White Blood Cells 0-5 SEEN /hpf (0-5)
== END | disposition home or self-care (01) ==
LOC: LABSPEC 14:46
PROVIDERS: PCP Family Medicine; Referring Provider Family Medicine; Visit Provider Family Medicine
DX: R31.9 Hematuria, unspecified (principal)
CPT/HCPCS: 81001

== ENCOUNTER → 2023-03-30 | Outpatient (CLI) | payer OTHER, SELFPAY ==
[2023-03-30 10:28] LABS: PTHIN 54.2 pg/mL (18.4-80.1)
[2023-03-30 10:38] LABS: Anion Gap 6 (5-15); BUN 16 mg/dL (7-18); BUN/Creat Ratio 17.9 RATIO (10-20); Chloride 104 mmol/L (98-107); Cholesterol 272 mg/dL (200); Creatinine, Serum 0.89 mg/dL (0.55-1.02); EST Glomerular Filtration Rate 67 mL/min (>60); Est Glom Filt Rate - Afr Amer 82 mL/min (>60); Glucose 114 mg/dL (74-106); High Density Lipoprotein 46 mg/dL; Potassium 3.8 mmol/L (3.5-5.1); Sodium Level 137 mmol/L (136-145); T4 Free Direct 1.24 ng/dL (0.76-1.46); Thyroid Stim Hormone (TSH) 2.33 uIU/mL (0.358-3.74); Triglycerides 98 mg/dL; Very Low Density Lipoprotein 20 mg/dL (5-40)
[2023-03-30 11:05] LABS: Vitamin D,25 Hydroxy 44.7 ng/mL
== END | disposition home or self-care (01) ==
LOC: LAB 08:31
PROVIDERS: PCP Family Medicine; Referring Provider Family Medicine; Visit Provider Family Medicine
DX: I10 Essential (primary) hypertension (principal); E21.3 Hyperparathyroidism, unspecified; E55.9 Vitamin D deficiency, unspecified; E03.8 Other specified hypothyroidism
CPT/HCPCS: 36415; 80048; 80061; 82306; 83970; 84439; 84443

== ENCOUNTER → 2024-08-24 | Outpatient (CLI) | payer OTHER, MEDICARE, SELFPAY ==
[2024-08-24 15:36] LABS: ALB/GLOB Ratio 0.9 RATIO (0.9-2.4); AST(SGOT) 20 U/L (15-37); Alanine Aminotransfer ALT/SGPT 28 U/L (13-56); Albumin, Serum 3.8 g/dL (3.2-5.0); Alkaline Phosphatase 72 U/L (45-117); Anion Gap 9 (5-15); BUN 11 mg/dL (7-18); BUN/Creat Ratio 12.3 RATIO (10-20); Calcium,Total 9.8 mg/dL (8.5-10.1); Chloride 103 mmol/L (98-107); Cholesterol 273 mg/dL (200); Creatinine, Serum 0.89 mg/dL (0.55-1.02); EST Glomerular Filtration Rate 67 mL/min (>60); Est Glom Filt Rate - Afr Amer 81 mL/min (>60); Globulin 4.1 g/dL (2.2-4.2); Glucose 107 mg/dL (74-106); High Density Lipoprotein 51 mg/dL; Protein, Total 7.9 g/dL (6.4-8.2); Sodium Level 136 mmol/L (136-145); T4 Free Direct 1.33 ng/dL (0.76-1.46); Triglycerides 104 mg/dL; Very Low Density Lipoprotein 21 mg/dL (5-40)
[2024-08-24 15:39] LABS: PTHIN 62.4 pg/mL (18.4-80.1)
[2024-08-24 16:37] LABS: Vitamin D,25 Hydroxy 57.4 ng/mL
== END | disposition home or self-care (01) ==
LOC: MFPLAB 10:46
PROVIDERS: PCP Family Medicine; Referring Provider Family Medicine; Visit Provider Family Medicine
DX: R73.01 Impaired fasting glucose (principal); E55.9 Vitamin D deficiency, unspecified; E21.3 Hyperparathyroidism, unspecified; E03.8 Other specified hypothyroidism
CPT/HCPCS: 80053; 80061; 82306; 83970; 84439; 84443

== ENCOUNTER → 2025-01-11 | Outpatient (CLI) | payer MEDICARE, OTHER, SELFPAY ==
--- NOTE | 2025-01-11 09:02 | AAAS_ITS ---
Reason For Study Reason For Study: AAA Screening Aorta Measurements Aorta Doppler Measurements Proximal aorta measures2.36 x 2.30cm. in cross-sectional Peak systolic flow velocities within the proximal aorta axis. measure 94.1 cm/sec. Proximal aorta measures2.43cm. in longitudinal axis. Peak systolic flow velocities within the mid aorta measure Mid aorta measures1.40 x 1.39cm. in cross-sectional axis. 160.4 cm/sec. Mid aorta measures1.51cm. in longitudinal axis. Peak systolic flow velocities within the distal aorta Distal aorta measures1.46cm. in cross-sectional axis. measure 175.9 cm/sec. Distal aorta measures1.58cm. in longitudinal axis. Left Iliac Artery Left iliac artery measures 1.11 x 1.13 cm. in the cross-sectional axis. Left iliac artery measures 1.15 cm. in the longitudinal axis. Peak systolic velocity in the left iliac artery measures 150.0 cm/sec. Right Iliac Artery Right iliac artery measures 1.22 x 1.25 cm. in the cross-sectional axis. Right iliac artery measures 1.23 cm. in the longitudinal axis. Peak systolic velocity in the right iliac artery measures 155.2 cm/sec. Procedure Aorta IVC Iliac vasculature or bypass grafts 31863. The exam was diagnostic. Exam performed in department. VL/AAA Screening Interpretation Summary Aorta patent, normal caliber. Right iliac artery patent with ectasia to 1.25 cm Left iliac artery patent, normal caliber. Ordering Physician: Juan José Mosher Referring Physician: Juan José Mosher Performed By: Lee Finnegan RVT
--- NOTE | 2025-01-11 09:05 | US_ITS ---
PROCEDURE: THYROID 01/11/2025 REASON FOR EXAM: FU NODULE TECHNIQUE: THYROID COMPARISON: None FINDINGS: Right thyroid lobe size: 4.5x1.5x1.1 cm Left thyroid lobe size: 3.2x1x1.3 cm Isthmus: 0.25 cm Background parenchymal echotexture is heterogeneous. Nodules: Right lobe solid hypoechoic nonvascular nodule measuring 1.1 x 1x1 cm is noted. US/Thyroid IMPRESSION: Right thyroid lobe TR 4 nodule. No FNA needed. Follow-up is advised. Heterogenous thyroid gland, this could be seen in thyroiditis. Please correlat e with lab results. RECOMMENDATION: Based on most suspicious nodule. Nodule size = largest diameter Only evaluate nodule if =>5 mm. Growth > 20% in 2 dimensions = worsening. Follow up to 4 nodules. Recommend biopsy for no more than 2 nodules. Reading [facility]
--- NOTE | 2025-01-11 09:53 | BD_ITS ---
PROCEDURE: DEXA BONE DENSITY STUDY 01/11/2025 REASON FOR EXAM: F, age 64 y/o . Postmenopausal. TECHNIQUE: DEXA BONE DENSITY STUDY COMPARISON: Prior study dated April 28, 2018. FINDINGS: BMD and T-SCORES Lumbar spine: 0.710 g/cm2, T-score -3.1 Levels: L1 through L4 Change from prior: Loss of 3.9%. Left femoral neck: 0.619 g/cm2, T-score -2.1 Femoral neck comparison data not recommended for monitoring change. Left total hip: 0.785 g/cm2, T-score -1.3 Change from prior: Loss of 4.2%. Right femoral neck: 0.574 g/cm2, T-score -2.5 Femoral neck comparison data not recommended for monitoring change. Right total hip: 0.777 g/cm2, T-score -1.4 Change from prior: Loss of 1.8%. The World Health Organization has defined the following categories based on bone density: Normal bone density: T-score equal to or greater than -1.0 Osteopenia: T-score between -1.0 and -2.5 Osteoporosis: T-score equal to or less than -2.5 The patient does meet the pharmacological treatment recommendations for prevention of osteoporosis. BD/Dexa Bone Density Study IMPRESSION: OSTEOPOROSIS. Recommend follow-up as clinically warranted. Reading Location: [place] [id number]
--- NOTE | 2025-01-11 09:53 | BI_ITS ---
EXAM: SCRN MAMM (CAD)W/CLARA BILAT DATE: 01/11/2025 CLINICAL HISTORY: F, Age 64 y/o , SCREENING Grandmother with breast cancer. TECHNIQUE: SCRN MAMM (CAD)W/CLARA BILAT COMPARISON: Prior exam(s) dated December 17, 2022.. FINDINGS: TISSUE DENSITY: There are scattered areas of fibroglandular density. The previously seen well-defined nodule in the deep upper lateral aspect of the right breast has decreased in size. It presently measures 3.9 mm. Stable benign-appearing bilateral axillary lymph nodes. Bilateral Breast Mammographic Findings: No significant masses, calcifications or other abnormalities are identified. No suspicious masses, areas of developing architectural distortion, or suspicious calcifications. There has been no significant interval change. BI/SCRN MAMM (CAD)W/CLARA BILAT IMPRESSION: Stable examination. OVERALL FINAL ASSESSMENT BI-RADS 2: BENIGN RECOMMEND ANNUAL MAMMOGRAPHIC SCREENING. RECOMMENDATION: Routine annual follow-up in 1 Year A letter with findings and recommendations will be mailed to the patient. Reading Location: [place] [id number]
== END | disposition home or self-care (01) ==
LOC: OPBD 09:01 → US 09:02 → OPBD 09:03
PROVIDERS: PCP Family Medicine; Referring Provider Family Medicine; Visit Provider Family Medicine
DX: Z12.31 Encounter for screening mammogram for malignant neoplasm of breast (principal); Z78.0 Asymptomatic menopausal state; Z13.6 Encounter for screening for cardiovascular disorders; Z80.3 Family history of malignant neoplasm of breast
CPT/HCPCS: 76536; 76706; 77063; 77067; 77080